=== PATIENT | female | born 1965 | race African-American/Black ===

== ENCOUNTER 2021-10-24 10:17 | Inpatient (IN) | payer OTHER ==
[2021-10-24] MEDS ORDERED: ACETAMINOPHEN 325 MG TABLET (FP) PO PRN (11:02)
[2021-10-24] MEDS ORDERED: MENTHOL/PHENOL 1 EACH UD MM PRN (11:02)
[2021-10-24] MEDS ORDERED: BISMUTH SUBSALICYLATE 262 MG/15 ML BTL PO PRN (11:02)
[2021-10-24] MEDS ORDERED: MAG HYDROX/AL HYDROX/SIMETH 30 ML UNIT-DOSE CUP PO PRN (11:02)
[2021-10-24] MEDS ORDERED: NICOTINE 10 MG CARTRIDGE (INHALER) IH PRN (11:02)
[2021-10-24] MEDS ORDERED: MAGNESIUM CITRATE 300 ML BOTTLE PO PRN (11:02)
[2021-10-24] MEDS ORDERED: LOPERAMIDE HCL 2 MG CAPSULE PO PRN (11:02)
[2021-10-24] MEDS ORDERED: MAGNESIUM HYDROX 2400MG/30ML ORAL SUSPENSION 30 ML CUP PO PRN (11:02)
[2021-10-24] MEDS ORDERED: chlordiazePOXIDE HCL 25 MG CAPSULE PO PRN (11:02)
[2021-10-24] MEDS ORDERED: ONDANSETRON *ODT* 4 MG TABLET SL PRN (11:02)
[2021-10-24 11:13] VITALS: BMI 36.1
[2021-10-24] MEDS ORDERED: chlordiazePOXIDE HCL 25 MG CAPSULE ONE (12:03)
[2021-10-24] MEDS ORDERED: IBUPROFEN 400 MG TABLET (FP) PO ONE (12:03)
[2021-10-24] MEDS: IBUPROFEN 400 MG TABLET (FP) PO PRN (12:05)
[2021-10-24 15:29] LABS: HEMATOCRIT 38.7 % (32.4-45.2); HEMOGLOBIN 12.6 GM/dL (10.7-15.3); MCH 28.3 pg (25.7-33.7); MCHC 32.6 g/dl (32.0-36.0); MEAN CELL VOLUME 86.8 fl (80-96); MEAN PLT VOLUME 9.2 fl (7.5-11.1); PLATELET COUNT 235 10^3/uL (134-434); RBC 4.45 M/mm3 (3.60-5.2); WHITE BLOOD COUNT 4.4 K/mm3 (4.0-10.0)
[2021-10-24 15:36] LABS: BLOOD UREA NITROGEN 16.7 mg/dL (7-18); CALCIUM 9.1 mg/dL (8.5-10.1)
[2021-10-24 15:37] LABS: ALBUMIN 3.5 g/dl (3.4-5.0)
[2021-10-24 15:40] LABS: CREATININE 0.8 mg/dL (0.55-1.3)
[2021-10-24 15:41] LABS: BILIRUBIN,TOTAL 0.1 mg/dL (0.2-1); TOT PROT 6.9 g/dl (6.4-8.2)
[2021-10-24 16:32] LABS: HIV INTERPRETATION NEGATIVE (NEGATIVE)
[2021-10-24] MEDS: METHOCARBAMOL 500 MG TABLET PO PRN (18:29)
[2021-10-24] MEDS: ACETAMINOPHEN 325 MG TABLET (FP) PO PRN (18:30)
[2021-10-24] MEDS: chlordiazePOXIDE HCL 25 MG CAPSULE PO SCH ×2 (18:30→23:16)
[2021-10-24] MEDS: hydrOXYzine PAMOATE 25 MG CAPSULE (FP) PO SCH ×3 (18:30→23:16)
[2021-10-24] MEDS: NICOTINE 14 MG/24 HOURS TOPICAL PATCH TD SCH (18:34)
[2021-10-24] MEDS: PRENATAL VITAMINS W/ FOLIC ACID TABLET (FP) PO SCH (18:34)
[2021-10-24] MEDS: THIAMINE HCL 100 MG TABLET (FP) PO SCH (23:17)
[2021-10-24] MEDS: MELATONIN 5 MG TABLETS PO SCH (23:30)
[2021-10-25] MEDS: chlordiazePOXIDE HCL 25 MG CAPSULE PO SCH ×4 (07:33→23:09)
[2021-10-25] MEDS: hydrOXYzine PAMOATE 25 MG CAPSULE (FP) PO SCH ×5 (07:34→23:10)
[2021-10-25] MEDS: IBUPROFEN 400 MG TABLET (FP) PO PRN ×3 (09:09→23:12)
[2021-10-25] MEDS: PRENATAL VITAMINS W/ FOLIC ACID TABLET (FP) PO SCH (10:42)
[2021-10-25] MEDS: NICOTINE 14 MG/24 HOURS TOPICAL PATCH TD SCH (10:43)
[2021-10-25] MEDS ORDERED: AMOXICILLIN 500 MG CAPSULE (FP) PO ONE (20:00)
[2021-10-25] MEDS: THIAMINE HCL 100 MG TABLET (FP) PO SCH (23:10)
[2021-10-25] MEDS: MELATONIN 5 MG TABLETS PO SCH (23:10)
[2021-10-26] MEDS: IBUPROFEN 400 MG TABLET (FP) PO PRN ×2 (06:59→16:31)
[2021-10-26] MEDS: hydrOXYzine PAMOATE 25 MG CAPSULE (FP) PO SCH ×5 (07:00→23:01)
[2021-10-26] MEDS: chlordiazePOXIDE HCL 25 MG CAPSULE PO SCH ×5 (07:00→23:02)
[2021-10-26] MEDS: PRENATAL VITAMINS W/ FOLIC ACID TABLET (FP) PO SCH (10:19)
[2021-10-26] MEDS: NICOTINE 14 MG/24 HOURS TOPICAL PATCH TD SCH (10:21)
[2021-10-26] MEDS: METHOCARBAMOL 500 MG TABLET PO PRN ×2 (13:34→23:01)
[2021-10-26] MEDS ORDERED: PENICILLIN G BENZATHINE 2,400,000 UNIT/4 ML PFS IM ONE (15:24)
[2021-10-26] MEDS: CHLORHEXIDINE GLUCONATE 0.12% 15ML CUP MM SCH ×2 (18:32→23:01)
[2021-10-26] MEDS: MELATONIN 5 MG TABLETS PO SCH (23:01)
[2021-10-26] MEDS: AMOXICILLIN 500 MG CAPSULE (FP) PO SCH (23:01)
[2021-10-26] MEDS: THIAMINE HCL 100 MG TABLET (FP) PO SCH (23:01)
[2021-10-26] MEDS: ACETAMINOPHEN 325 MG TABLET (FP) PO PRN (23:03)
[2021-10-27] MEDS ORDERED: chlordiazePOXIDE HCL 10 MG CAPSULE PO PRN
[2021-10-27] MEDS: IBUPROFEN 400 MG TABLET (FP) PO PRN ×3 (01:40→22:37)
[2021-10-27] MEDS: chlordiazePOXIDE HCL 10 MG CAPSULE PO SCH ×4 (07:18→22:39)
[2021-10-27] MEDS: hydrOXYzine PAMOATE 25 MG CAPSULE (FP) PO SCH ×5 (07:18→22:38)
[2021-10-27] MEDS: AMOXICILLIN 500 MG CAPSULE (FP) PO SCH ×2 (10:49→22:37)
[2021-10-27] MEDS: CHLORHEXIDINE GLUCONATE 0.12% 15ML CUP MM SCH ×2 (10:49→22:38)
[2021-10-27] MEDS: PRENATAL VITAMINS W/ FOLIC ACID TABLET (FP) PO SCH (10:51)
[2021-10-27] MEDS: NICOTINE 14 MG/24 HOURS TOPICAL PATCH TD SCH (11:31)
[2021-10-27] MEDS: BENZOCAINE 20 % GEL TUBE MM PRN ×2 (13:53→22:41)
[2021-10-27] MEDS: ACETAMINOPHEN 325 MG TABLET (FP) PO PRN (18:17)
[2021-10-27] MEDS: THIAMINE HCL 100 MG TABLET (FP) PO SCH (22:38)
[2021-10-27] MEDS: METHOCARBAMOL 500 MG TABLET PO PRN (22:38)
[2021-10-27] MEDS: MELATONIN 5 MG TABLETS PO SCH (22:38)
[2021-10-28] MEDS: hydrOXYzine PAMOATE 25 MG CAPSULE (FP) PO SCH ×5 (06:03→22:36)
[2021-10-28] MEDS: chlordiazePOXIDE HCL 10 MG CAPSULE PO SCH ×2 (06:03→18:06)
[2021-10-28] MEDS: IBUPROFEN 400 MG TABLET (FP) PO PRN ×2 (06:07→22:35)
[2021-10-28] MEDS: NICOTINE 14 MG/24 HOURS TOPICAL PATCH TD SCH (10:40)
[2021-10-28] MEDS: PRENATAL VITAMINS W/ FOLIC ACID TABLET (FP) PO SCH (10:40)
[2021-10-28] MEDS: CHLORHEXIDINE GLUCONATE 0.12% 15ML CUP MM SCH ×2 (10:40→22:35)
[2021-10-28] MEDS: AMOXICILLIN 500 MG CAPSULE (FP) PO SCH (10:41)
[2021-10-28] MEDS: ACETAMINOPHEN 325 MG TABLET (FP) PO PRN (17:40)
[2021-10-28] MEDS: BENZOCAINE 20 % GEL TUBE MM PRN (22:35)
[2021-10-28] MEDS: MELATONIN 5 MG TABLETS PO SCH (22:35)
[2021-10-28] MEDS: THIAMINE HCL 100 MG TABLET (FP) PO SCH (22:36)
[2021-10-28] MEDS: METHOCARBAMOL 500 MG TABLET PO PRN (22:36)
[2021-10-29] MEDS ORDERED: chlordiazePOXIDE HCL 10 MG CAPSULE PO ONE (05:00)
[2021-10-29] MEDS: hydrOXYzine PAMOATE 25 MG CAPSULE (FP) PO SCH ×2 (06:34→10:14)
[2021-10-29] MEDS: ACETAMINOPHEN 325 MG TABLET (FP) PO PRN (06:38)
[2021-10-29] MEDS: PRENATAL VITAMINS W/ FOLIC ACID TABLET (FP) PO SCH (10:14)
[2021-10-29] MEDS: NICOTINE 14 MG/24 HOURS TOPICAL PATCH TD SCH (10:14)
[2021-10-29] MEDS: CHLORHEXIDINE GLUCONATE 0.12% 15ML CUP MM SCH (10:14)
[2021-10-29] MEDS: IBUPROFEN 400 MG TABLET (FP) PO PRN (11:46)
[2021-10-29 12:46] VITALS: BP 122/67; PULSE 76; TEMP 98.2
== END 2021-10-29 14:35 | disposition other institution (70) | DRG 775 ==
LOC: YASAS 10:17 → Y3N 15:50
PROVIDERS: ADMIT Allergy & Immunology; ATTEND Allergy & Immunology
PROC: HZ2ZZZZ Detoxification Services for Substance Abuse Treatment (ICD-10-PCS; principal; 2021-10-24)
DX: F10.230 Alcohol dependence with withdrawal, uncomplicated (principal); F12.20 Cannabis dependence, uncomplicated; F17.210 Nicotine dependence, cigarettes, uncomplicated; A53.0 Latent syphilis, unspecified as early or late; I10 Essential (primary) hypertension; K08.89 Other specified disorders of teeth and supporting structures; M19.90 Unspecified osteoarthritis, unspecified site; M54.50 Low back pain, unspecified; G89.29 Other chronic pain
CPT/HCPCS: 36415; 80053; 81025; 82962; 85027; 86593; 86780; 87389; 93005; 93010; C9803-CS; U0003; U0005